=== PATIENT | male | born 1945 | race Caucasian/White ===

== ENCOUNTER 2017-05-19 07:03 | Emergency (ER) | payer MEDICARE, OTHER ==
[2017-05-19 07:12] VITALS: BP 154/81
[2017-05-19] MEDS ORDERED: Sodium Chloride 0.9% 2,000 ML IV STA (07:30)
[2017-05-19] MEDS ORDERED: Ondansetron 4 MG/2 ML SDV IVPUSH ONE ×2 (07:30→09:31)
--- NOTE | 2017-05-19 07:35 | EDM.PDOC ---
ED HPI GENERAL MEDICAL PROBLEM - General Chief Complaint: Gastrointestinal Problem Stated Complaint: CHEMO PATIENT NEEDS FLUIDS Time Seen by Provider: 05/19/17 07:24 Source of Information: Reports: Patient, Family History Limitations: Reports: No Limitations - History of Present Illness INITIAL COMMENTS - FREE TEXT/NARRATIVE: The patient presents with nausea and vomiting. He has throat cancer and he is getting chemo and radiation for this. His last chemo was Saturday. He did get fluids on Saturday but yesterday he could not keep anything down. He does have some throat pain but he has no fever, chills, cough, chest pain, shortness of breath, or abdominal pain. Onset: Gradual Duration: Day(s): (2) Location: Reports: Other (Throat) Quality: Reports: Sharp Severity: Mild Improves with: Reports: None Worsens with: Reports: None Associated Symptoms: Reports: Nausea/Vomiting. Denies: Chest Pain, Cough, Fever /Chills, Shortness of Breath - Related Data Allergies Allergy/AdvReac Type Severity Reaction Status Date / Time venom-honey bee Allergy Cannot Verified 05/19/17 07:09 [bee venom (honey bee)] Remember Home Meds: Home Meds Aspirin [Ecotrin] 162 mg PO DAILY 02/14/15 [History] Calcium Carbonate/Vitamin D3 [Calcium 600-Vit D3 400 Tablet] 1 tab PO BID [History] atorvaSTATin [Lipitor] 40 mg PO BEDTIME 02/14/15 [History] Prochlorperazine [Compazine] 10 mg PO Q6H PRN 05/19/17 [History] Past Medical History Other HEENT History: glasses for reading Cardiovascular History: Reports: High Cholesterol Oncologic (Cancer) History: Reports: Prostate, Other (See Below) Other Oncologic History: throat - Past Surgical History Other Musculoskeletal Surgeries/Procedures:: left thumb trigger release 2010 Social & Family History - Tobacco Use Smoking Status *Q: Unknown Ever Smoked - Recreational Drug Use Recreational Drug Use: No Drug Use in Last 12 Months: No ED ROS GENERAL - Review of Systems Review Of Systems: See Below Constitutional: Reports: No Symptoms HEENT: Reports: Throat Pain Respiratory: Reports: No Symptoms Cardiovascular: Reports: No Symptoms Endocrine: Reports: No Symptoms GI/Abdominal: Reports: Nausea, Vomiting. Denies: Abdominal Pain, Diarrhea : Reports: No Symptoms Musculoskeletal: Reports: No Symptoms ED EXAM, GI/ABD - Physical Exam Exam: See Below Exam Limited By: No Limitations General Appearance: Alert, No Apparent Distress Ears: Normal External Exam Nose: Normal Inspection Throat/Mouth: Other (Dry mucus membranes) Head: Atraumatic, Normocephalic Neck: Normal Inspection Respiratory/Chest: No Respiratory Distress, Lungs Clear, Normal Breath Sounds Cardiovascular: Regular Rate, Rhythm, No Edema, No Murmur GI/Abdominal Exam: Soft, Non-Tender, No Organomegaly, No Mass Back Exam: Normal Inspection Extremities: Normal Inspection Course - Vital Signs Last Recorded V/S: Last Vital Signs Temp 96.0 F 05/19/17 07:09 Pulse 80 05/19/17 07:09 Resp BP 154/81 H 05/19/17 07:09 Pulse Ox 98 05/19/17 07:09 - Orders/Labs/Meds Orders: Active Orders 24 hr Category Date Time Status Implanted Port Access [RC] ONETIME Care 05/19/17 07:31 Active ED Antiemetic Medication Reflex [OM.PC] Stat Oth 05/19/17 07:30 Ordered Labs: Laboratory Tests 05/19/17 05/19/17 Range/Units 07:48 07:48 WBC 5.13 (4.23-9.07) K/mm3 RBC 4.26 L (4.63-6.08) M/mm3 Hgb 13.3 L (13.7-17.5) gm/L Hct 37.5 L (40.1-51.0) % MCV 88.0 (79.0-92.2) fl MCH 31.2 (25.7-32.2) pg MCHC 35.5 (32.2-35.5) g/dl RDW Std Deviation 40.0 (35.1-43.9) fL Plt Count 252 (163-337) K/mm3 MPV 8.4 L (9.4-12.3) fl Neut % (Auto) 68.0 H (34.0-67.9) % Lymph % (Auto) 6.6 L (21.8-53.1) % Morrill % (Auto) 21.1 H (5.3-12.2) % Eos % (Auto) 1.6 (0.8-7.0) Baso % (Auto) 0.2 (0.1-1.2) % Neut # (Auto) 3.49 (1.78-5.38) K/mm3 Lymph # (Auto) 0.34 L (1.32-3.57) K/mm3 Morrill # (Auto) 1.08 H (0.30-0.82) K/mm3 Eos # (Auto) 0.08 (0.04-0.54) K/mm3 Baso # (Auto) 0.01 (0.01-0.08) K/mm3 Manual Slide Review Normal smear Sodium 134 L (136-145) mEq/L Potassium 3.8 (3.5-5.1) mEq/L Chloride 97 L (98-107) mEq/L Carbon Dioxide 25 (21-32) mEq/L Anion Gap 15.8 H (5-15) BUN 18 (7-18) mg/dL Creatinine 1.0 (0.7-1.3) mg/dL Est Cr Clr Drug Dosing 67.93 mL/min Estimated GFR (MDRD) > 60 (>60) mL/min BUN/Creatinine Ratio 18.0 (14-18) Glucose 122 H (83-115) mg/dL Calcium 8.4 L (8.5-10.1) mg/dL Magnesium 1.9 (1.8-2.4) mg/dl Total Bilirubin 0.7 (0.2-1.0) mg/dL AST 21 (15-37) U/L ALT 27 (16-63) U/L Alkaline Phosphatase 90 (46-116) U/L Total Protein 6.6 (6.4-8.2) g/dl Albumin 3.3 L (3.4-5.0) g/dl Globulin 3.3 gm/dL Albumin/Globulin Ratio 1.0 (1-2) Meds: Medications Discontinued Medications Generic Name Dose Route Start Last Admin Trade Name Freq PRN Reason Stop Dose Admin Al Hydroxide/Mg Hydroxide 30 0 ml 05/19/17 09:31 05/19/17 09:46 ml/ Lidocaine HCl 15 ml PO 05/19/17 09:32 45 ml ONETIME ONE Administration Sodium Chloride 2,000 mls @ 1,000 mls/hr 05/19/17 07:30 05/19/17 07:59 Normal Saline IV 05/19/17 09:29 1,000 mls/hr .BOLUS STA Administration Sodium Chloride Confirm 05/19/17 09:04 Normal Saline Administered 05/19/17 09:05 Dose 1,000 mls @ as directed .ROUTE .STK-MED ONE Ondansetron HCl 4 mg 05/19/17 07:30 05/19/17 07:59 Zofran IVPUSH 05/19/17 07:31 4 mg ONETIME ONE Administration Ondansetron HCl 4 mg 05/19/17 09:31 05/19/17 09:48 Zofran IVPUSH 05/19/17 09:32 4 mg ONETIME ONE Administration - Re-Assessments/Exams Free Text/Narrative Re-Assessment/Exam: 05/19/17 07:34 I will have my nurse access his port and I will give him 2L of NS, zofran 4mg IV , and labs. 05/19/17 10:15 His WBC was normal at 5.13. His Hgb was a little low at 13.3. His platelets were normal. His Na was a little low at 134. His anion gap was slightly elevated at 15.8. His glucose was 122. He still had nausea and a sore throat. I ordered more zofran 4mg IV and a GI cocktail. 05/19/17 10:18 He is feeling better and he would like to go home. Departure - Departure Time of Disposition: 10:20 Disposition: Home, Self-Care 01 Condition: Good Clinical Impression: Sore throat, Throat cancer Nausea and vomiting Qualifiers: Vomiting type: unspecified Vomiting Intractability: non-intractable Qualified Code(s): R11.2 - Nausea with vomiting, unspecified - Discharge Information Referrals: PCP,Not In Area [Primary Care Provider] - Forms: ED Department Discharge Additional Instructions: Continue with your medication as prescribed. Drink plenty of fluids and slowly advance your diet as tolerated. Please return if you are worse. - My Orders Last 24 Hours: My Active Orders 05/19/17 07:30 ED Antiemetic Medication Reflex [OM.PC] Stat 05/19/17 07:31 Implanted Port Access [RC] ONETIME - Assessment/Plan Last 24 Hours: My Active Orders 05/19/17 07:30 ED Antiemetic Medication Reflex [OM.PC] Stat 05/19/17 07:31 Implanted Port Access [RC] ONETIME
[2017-05-19] MEDS ORDERED: Sodium Chloride 0.9% 1,000 ML ONE (09:04)
[2017-05-19] MEDS ORDERED: Alum Hydrox/Mag Hydrox/Simeth 30 ML, Lidocaine 2% 15 ML PO ONE ×2 (09:31)
== END 2017-05-19 10:30 | disposition home or self-care (01) ==
LOC: JD.ED 07:03
DX: J02.9 Acute pharyngitis, unspecified (principal); C14.0 Malignant neoplasm of pharynx, unspecified; E78.00 Pure hypercholesterolemia, unspecified; Z79.82 Long term (current) use of aspirin; Z91.030 Bee allergy status
CPT/HCPCS: 36415; 80053; 83735; 85025; 96361; 96374; 96375; 96376; 99283; A9270; J1642; J2405; J7040; 99284

== ENCOUNTER 2022-10-17 06:27 | Day surgery (SDC) | payer MEDICARE, OTHER ==
[2022-10-17] MEDS ORDERED: Ondansetron 4 MG/2 ML SDV IVPUSH ONE (08:30)
[2022-10-17] MEDS ORDERED: Lactated Ringers 500 ML IV ONE (08:30)
[2022-10-17 08:36] LABS: BASOPHILS ABSOLUTE AUTO 0.01 K/mm3 (0.01-0.08); BASOPHILS PERCENT AUTO 0.1 % (0.1-1.2); EOSINOPHILS ABSOLUTE AUTO 0.01 K/mm3 (0.04-0.54); EOSINOPHILS PERCENT AUTO 0.1 (0.8-7.0); HEMATOCRIT 39.5 % (40.1-51.0); HEMOGLOBIN 13.5 gm/dl (13.7-17.5); IMMATURE GRAN ABSOLUTE AUTO 0.02 K/mm3 (0.00-0.10); IMMATURE GRAN PERCENT AUTO 0.2 % (<=1.0); LYMPHOCYTES ABSOLUTE AUTO 0.71 K/mm3 (1.32-3.57); LYMPHOCYTES PERCENT AUTO 8.1 % (21.8-53.1); MEAN CORPUSCULAR HEMOGLOBIN 31.9 pg (25.7-32.2); MEAN CORPUSCULAR HGB CONC 34.2 g/dl (32.2-35.5); MEAN PLATELET VOLUME 9.2 fl (9.4-12.3); MONOCYTES ABSOLUTE AUTO 0.59 K/mm3 (0.30-0.82); MONOCYTES PERCENT AUTO 6.7 % (5.3-12.2); NEUTROPHILS ABSOLUTE AUTO 7.45 K/mm3 (1.78-5.38); NEUTROPHILS PERCENT AUTO 84.8 % (34.0-67.9); PLATELET COUNT,PLT 208 K/mm3 (163-337); RED BLOOD CELL COUNT 4.23 M/mm3 (4.63-6.08); WHITE BLOOD CELL COUNT,WBC 8.79 K/mm3 (4.23-9.07)
[2022-10-17 08:40] LABS: MEAN CORPUSCULAR VOLUME 93.4 fl (79.0-92.2)
[2022-10-17] MEDS ORDERED: Lactated Ringers 1,000 ML IV SCH (08:45)
[2022-10-17 09:12] LABS: A/G RATIO 1.1 (1-2); ALBUMIN 3.8 g/dl (3.4-5.0); C-REACTIVE PROTEIN 1.6 mg/dL (<1.0); CALCIUM 9.2 mg/dL (8.5-10.1); CREATININE 0.9 mg/dL (0.7-1.3); EST CRCL DRUG DOSING (CG) 67.65 mL/min; MAGNESIUM 1.9 mg/dL (1.8-2.4); PROTEIN TOTAL,TP 7.2 g/dl (6.4-8.2)
[2022-10-17 09:42] LABS: APPEARANCE,URINE CLEAR (Clear); BILIRUBIN,URINE NEGATIVE (Negative); COLOR,URINE YELLOW (Yellow); GLUCOSE,URINE NEGATIVE (Negative); KETONES,URINE TRACE (Negative); LEUKOCYTE ESTERASE,URINE NEGATIVE (Negative); NITRITE,URINE NEGATIVE (Negative); OCCULT BLOOD,URINE NEGATIVE (Negative); PROTEIN,URINE NEGATIVE (Negative); UROBILINOGEN,URINE 0.2 (0.2-1.0)
[2022-10-17 10:06] LABS: RBC,URINE NOT SEEN /hpf (0-5); WBC,URINE 0-5 /hpf (0-5)
[2022-10-17] MEDS ORDERED: Iopamidol 612 MG/ML 30 ML SDV IVPUSH ONE ×3 (10:06→10:07)
[2022-10-17 10:07] LABS: BACTERIA,URINE OCCASIONAL /hpf (FEW); MUCUS,URINE NOT SEEN /hpf (FEW); SQUAMOUS EPITHELIAL CELLS,UR 0-5 /hpf (0-5)
[2022-10-17] MEDS ORDERED: Sodium Chloride 0.9% 1,000 ML IV SCH (11:45)
[2022-10-17] MEDS ORDERED: Piperacillin/Tazobactam 4.5 GM in Sodium Chloride 0.9% 100 ML IV ONE (13:35)
[2022-10-17] MEDS ORDERED: fentaNYL 100 MCG/2 ML SDV IVPUSH PRN (13:47)
[2022-10-17] MEDS ORDERED: HYDROmorphone 0.5 MG/0.5 ML Syringe IVPUSH PRN (13:47)
[2022-10-17] MEDS ORDERED: Ondansetron 4 MG/2 ML SDV IVPUSH PRN (13:47)
[2022-10-17] MEDS ORDERED: Lidocaine 1% 2 ML ONE (16:56)
[2022-10-17] MEDS ORDERED: Ondansetron 4 MG/2 ML SDV ONE (16:56)
[2022-10-17] MEDS ORDERED: Rocuronium 50 MG/5 ML Vial ONE (16:56)
[2022-10-17] MEDS ORDERED: Propofol 200 MG/20 ML SDV ONE (16:56)
[2022-10-17] MEDS ORDERED: fentaNYL 100 MCG/2 ML SDV ONE (16:56)
[2022-10-17] MEDS ORDERED: Lidocaine 1% 30 ML SDV ONE (17:04)
[2022-10-17] MEDS ORDERED: Bupivacaine 0.5%/EPINEPHrine 1:200,000 50 ML MDV ONE (17:04)
[2022-10-17] MEDS ORDERED: EPINEPHrine 1 MG/ML SDV ONE (17:04)
[2022-10-17] MEDS ORDERED: Sugammadex Sodium 200 MG/2 ML VIAL ONE (18:03)
[2022-10-17] MEDS ORDERED: Ketorolac 30 MG/ML SDV ONE (18:36)
[2022-10-17 22:27] VITALS: BP 124/75; PULSE 74
== END 2022-10-17 22:00 | disposition home or self-care (01) ==
LOC: JD.ED 06:27 → JD.SDS 14:34
PROVIDERS: ATTEND Surgery
DX: K35.30 Acute appendicitis with localized peritonitis, without perforation or gangrene (principal); K42.9 Umbilical hernia without obstruction or gangrene; E78.00 Pure hypercholesterolemia, unspecified; Z91.030 Bee allergy status; Z79.82 Long term (current) use of aspirin; Z78.9 Other specified health status; Z79.899 Other long term (current) drug therapy
CPT/HCPCS: 36415; 44970; 74177; 80053; 81001; 83690; 83735; 85025; 86140; 96361; 96365; 96375; 99285; J0171; J1885; J2405; J2543; J2704; J3010; J3490; J7030; J7120; Q9967; 00840; 99100